=== PATIENT | female | born 1995 | race African-American/Black ===

== ENCOUNTER 2019-10-19 19:24 | Emergency (ER) | payer SELFPAY ==
[~2019-10-19] VITALS: Ht 162.6 cm; Wt 63.5 kg
[2019-10-19] MEDS ORDERED: Lidocaine 1% Plain 30 ml INJ ONE ×2 (19:37→20:45)
[2019-10-19 19:40] VITALS: BP 110/79
[2019-10-19] MEDS ORDERED: Tetanus/Diptheria/Pertussis IM ONE (19:45)
--- NOTE | 2019-10-19 20:12 | Emergency Room Report ---
History of Present Illness General Chief Complaint: Laceration Source: Patient Present Illness HPI Patient is a 24-year-old female denies any significant past medical history who presents to the ER complaining of laceration to her left ring finger. Patient states that she is right-hand dominant and was cutting and avocado and cut her finger just prior to arrival. She has wrapped it in gauze. She does not know when her last tetanus shot was. Allergies: Coded Allergies: No Known Allergies (Unverified , 10/19/19) COVID-19 Screening Contact w/high risk pt: No Recent Travel to affected area: No Experienced COVID-19 symptoms?: No COVID-19 Testing performed CAR [employer]PER[employer] HELPER: No Patient History Past Medical History: none Past Surgical History: none Social History: Reports: smoking, alcohol use, drug use Last Menstrual Period: 10/04/19 Now: No : 2 Para: 0 Nursing Documentation-[facility] Past Medical History: No Stated History Review of Systems All Other Systems: negative except mentioned in HPI Physical Exam Vital Signs Date Time Temp Pulse Resp B/P (MAP) Pulse Ox O2 Delivery O2 Flow Rate FiO2 10/19/19 19:25 98.2 17 110/79 (89) Room Air Sp02 EP Interpretation: reviewed, normal General Appearance: alert, GCS 15, non-toxic, mild distress - APPEARS nervous and anxious Head: normocephalic, atraumatic Eyes: bilateral eye normal inspection, bilateral eye PERRL ENT: hearing grossly normal, normal pharynx, no angioedema, normal voice Neck: full range of motion, supple/symm/no masses Respiratory: chest non-tender, lungs clear, normal breath sounds, speaking full sentences Cardiovascular #1: regular rate, rhythm, no edema Gastrointestinal: normal bowel sounds, non tender, soft, non-distended, no guarding, no rebound Rectal: deferred Musculoskeletal: other - Left index finger along the mid phalanx lateral V- shaped laceration approximately 5 cm in length with no tendon involvement still oozing blood cap refill immediate normal range of motion Neurologic: alert Psychiatric: no suicidal/homicidal ideation Lymphatic: no adenopathy Procedures Laceration/Wound Repair Laceration/Wound Repair : Consent: Verbal Wound Location: upper extremity - L ring finger Wound's Depth, Shape: other - V-shaped Wound Length (cm): 5 Wound Explored: clean Betadine Prep?: No Anesthesia: 1% Lidocaine Volume Anesthetic (ccs): 2 Wound Debrided: minimal Wound Repaired With: sutures, Dermabond Suture Size/Type: 5:0, proline Number of Sutures: 6 Layer Closure?: No Splint Applied?: Yes Type of Splint Applied: metal finger splint Patient Tolerated: Well Complications: None Medical Decision Making Diagnostic Impression: Primary Impression: Laceration ER Course Patient is laceration repaired. Patient placed in finger splint. Patient to follow-up with her doctor in 2 days for wound check and return to the ER in 10 days for suture removal. After discussing risks and benefits of further diagnostics, treatment plans, as well as indications for and risks of admission , the patient is agreeable to being discharged home. I have explained that their evaluation and treatment in the emergency department today is an important step towards them achieving better health but that their evaluation today is not intended to replace further evaluation and treatment by a physician in their local clinic. I have explained that while the current findings suggest no immediate life threatening emergency they will require further evaluation and treatment by a physician of their choice in their area. They understand that it will be necessary for them to review the final reports of their ED visit with their clinic physician. We have reviewed indications for return to the Emergency Department. I have explained that additional time may need to pass and/or additional testing as an outpatient may be necessary before a definitive diagnosis can be made. They tell me they are willing to follow up as instructed within the timeframe I recommend. They appear to understand what we discussed. Additionally they understand that if they are unable to be seen by an outpatient physician they are welcome, and in fact should, return to the Emergency Department for a repeat evaluation. The patient is stable at time of discharge. Last Vital Signs Date Time Temp Pulse Resp B/P (MAP) Pulse Ox O2 Delivery O2 Flow Rate FiO2 10/19/19 19:40 98.2 17 110/79 Room Air Disposition: HOME, SELF-CARE Condition: Stable Referrals: [facility] Patient Instructions: Laceration Care, Adult Additional Instructions: RETURN TO ER IN 10 DAYS FOR SUTURE REMOVAL. The patient was provided with discharge instructions, notified to follow-up with a primary care doctor and or specialist in the next 24-48 hours, and to return to the ED if they have worsening of their symptoms. Please note that this report is being documented using DRAGON technology. This can lead to erroneous entry secondary to incorrect interpretation by the dictating instrument. Bety Sims M.D. October 19, 2019 20:12
[2019-10-19] MEDS ORDERED: LORazepam 0.5mg tab ORAL SCH (20:15)
[2019-10-19 20:20] VITALS: BP 110/79
== END 2019-10-19 20:20 | disposition home or self-care (01) ==
LOC: EMR 19:40
DX: S61.215A Laceration without foreign body of left ring finger without damage to nail, initial encounter (principal); F17.200 Nicotine dependence, unspecified, uncomplicated; W26.0XXA Contact with knife, initial encounter; Y93.G3 Activity, cooking and baking; Y92.9 Unspecified place or not applicable; Z72.89 Other problems related to lifestyle; F19.90 Other psychoactive substance use, unspecified, uncomplicated
CPT/HCPCS: 12002; 90471; 90715; 99283; J2001